=== PATIENT | female | born 2000 | race African-American/Black ===

== ENCOUNTER 2020-11-07 09:40 | Inpatient (IN) ==
[2020-11-07] MEDS ORDERED: ceFAZolin 3,000 MG in SYRINGE 1 EACH IV ONE (10:42)
[2020-11-07] MEDS ORDERED: FAMOTIDINE 20 MG/2 ML VIAL IV ONE (10:42)
[2020-11-07] MEDS ORDERED: CITRIC ACID/SODIUM CITRATE 30 ML UDCUP PO ONE (10:42)
[2020-11-07] MEDS ORDERED: OXYTOCIN 10 UNIT/ML VIAL IM ONE (10:44)
[2020-11-07] MEDS ORDERED: OXYTOCIN/LR 30 UNIT/1,000 ML BAG IV ONE (10:44)
[2020-11-07 11:09] LABS: Basophils % 0.4 % (0.0-0.8); Eosinophils # 0.2 10*3/uL (0.0-0.87); Eosinophils % 2.8 % (0.00-10.9); Hematocrit 38.9 VOL% (35.7-47.0); Hemoglobin 13.3 GM/DL (12.0-16.0); Immature Granulocytes % 0.1 %; Immature Granulocytes Absolute 0.01 #; Lymphocytes # 2.3 10*3/uL (1.4-4.0); Lymphocytes % 33.7 % (21.3-54.2); Mean Corpuscular HGB Conc 34.2 GM/DL (32-36); Mean Corpuscular Volume 86.1 FL (87-102); Mean Platelet Volume 9.2 FL (9.6-12.0); Monocytes % 6.1 % (1.7-12.7); Neutrophils % 56.9 % (38.7-73.9); Platelet Count 308 T/CUMM (130-400); Red Blood Count 4.52 MC/CUMM (3.8-5.5); Red Cell Distribution Width 14.4 % (9.3-17.3); White Blood Count 6.8 T/CUMM (4-12)
[2020-11-07] MEDS: LACTATED RINGERS 1,000 ML IV SCH ×2 (11:30→12:48)
[2020-11-07 11:32] LABS: Albumin 2.8 G/DL (3.4-5.0); Bilirubin,Total 0.5 MG/DL (0.20-1.00); Calcium 8.7 MG/DL (8.5-10.1); Osmolality,Calculated 270.8 MOS/KG (273-304); Potassium 3.7 MMOL/L (3.5-5.1); Total Protein 7.3 G/DL (6.4-8.2)
[2020-11-07] MEDS ORDERED: miSOPROStoL 200 MCG TABLET ONE (13:46)
[2020-11-07] MEDS ORDERED: TRANEXAMIC ACID 1,000 MG/10 ML VIAL ONE (13:46)
[2020-11-07] MEDS ORDERED: METHYLERGONOVINE 0.2 MG/1 ML AMP ONE (13:47)
[2020-11-07] MEDS ORDERED: CARBOPROST TROMETHAMINE 250 MCG/ML AMP IM ONE (13:47)
[2020-11-07] MEDS ORDERED: SODIUM CHLORIDE 0.9% 0 ML IV ONE (13:49)
[2020-11-07] MEDS ORDERED: SODIUM CHLORIDE 0.9% 100 ML IV ONE ×2 (13:51→17:18)
[2020-11-07] MEDS ORDERED: BUPIVACAINE SPINAL 0.75% 2 ML AMP SPINAL ONE (16:22)
[2020-11-07] MEDS ORDERED: ONDANSETRON 4 MG/2 ML VIAL ONE (16:23)
[2020-11-07] MEDS ORDERED: ACETAMINOPHEN INJ 1,000 MG/100 ML VIAL IV ONE (17:09)
[2020-11-07] MEDS ORDERED: LACTATED RINGERS 1,000 ML IV ONE (17:09)
[2020-11-07] MEDS ORDERED: KETOROLAC 30 MG/1 ML VIAL ONE (17:18)
[2020-11-07 17:31] LABS: Cord Arterial Blood HCO3 21.6 MMOL/L
[2020-11-07 17:34] LABS: Cord Venous Blood HCO3 22.2 MMOL/L; Cord Venous Blood PCO2 42.2 MMHG; Cord Venous Blood PO2 27.7
[2020-11-07] MEDS ORDERED: RHO(D) IMMUNE GLOBULIN 300 MCG SYRINGE IM ONE (18:02)
[2020-11-07] MEDS ORDERED: ONDANSETRON 4 MG/2 ML VIAL IV PRN (18:02)
[2020-11-07] MEDS ORDERED: ACETAMINOPHEN 325 MG TABLET PO PRN (18:02)
[2020-11-07] MEDS ORDERED: OXYTOCIN/LR 20 UNIT/1,000 ML BAG IV ONE (18:02)
[2020-11-07] MEDS ORDERED: LACTATED RINGERS 1,000 ML IV SCH (18:30)
[2020-11-07] MEDS: IBUPROFEN 800 MG TABLET PO PRN (21:17)
[2020-11-07] MEDS: DOCUSATE SODIUM 100 MG CAPSULE PO SCH (23:19)
[2020-11-07] MEDS: ACETAMINOPHEN 500 MG TABLET PO SCH (23:29)
[2020-11-08 01:55] LABS: Basophils % 0.2 % (0.0-0.8); Eosinophils # 0.1 10*3/uL (0.0-0.87); Eosinophils % 0.8 % (0.00-10.9); Hematocrit 35.5 VOL% (35.7-47.0); Hemoglobin 11.8 GM/DL (12.0-16.0); Immature Granulocytes % 0.4 %; Immature Granulocytes Absolute 0.04 #; Lymphocytes # 2.5 10*3/uL (1.4-4.0); Lymphocytes % 26.9 % (21.3-54.2); Mean Corpuscular HGB Conc 33.2 GM/DL (32-36); Mean Corpuscular Volume 87.4 FL (87-102); Mean Platelet Volume 9.3 FL (9.6-12.0); Neutrophils % 66.7 % (38.7-73.9); Platelet Count 255 T/CUMM (130-400); Red Blood Count 4.06 MC/CUMM (3.8-5.5); Red Cell Distribution Width 14.4 % (9.3-17.3); White Blood Count 9.1 T/CUMM (4-12)
[2020-11-08] MEDS: KETOROLAC 30 MG/1 ML VIAL IV SCH ×2 (02:59→08:56)
[2020-11-08] MEDS ORDERED: diphenhydrAMINE CAP 25 MG CAPSULE PO PRN (03:00)
[2020-11-08] MEDS: ACETAMINOPHEN 500 MG TABLET PO SCH (05:12)
[2020-11-08] MEDS: MAGNESIUM HYDROXIDE SUSP 30 ML UDCUP PO PRN (08:54)
[2020-11-08] MEDS: DOCUSATE SODIUM 100 MG CAPSULE PO SCH ×2 (08:55→21:43)
[2020-11-08] MEDS: SIMETHICONE CHEW 80 MG TABLET PO PRN ×2 (08:55→21:44)
[2020-11-08] MEDS: MULTIVITAMIN (PRENATAL) TABLET PO SCH (08:55)
[2020-11-08] MEDS: METOCLOPRAMIDE 10 MG TABLET PO SCH ×2 (08:55→16:30)
[2020-11-08 09:02] LABS: Basophils % 0.1 % (0.0-0.8); Eosinophils # 0.1 10*3/uL (0.0-0.87); Eosinophils % 1.7 % (0.00-10.9); Hematocrit 38.7 VOL% (35.7-47.0); Hemoglobin 12.9 GM/DL (12.0-16.0); Immature Granulocytes % 0.3 %; Immature Granulocytes Absolute 0.02 #; Lymphocytes % 27.2 % (21.3-54.2); Mean Corpuscular HGB Conc 33.3 GM/DL (32-36); Mean Corpuscular Volume 86.8 FL (87-102); Mean Platelet Volume 8.8 FL (9.6-12.0); Monocytes % 4.4 % (1.7-12.7); Neutrophils % 66.3 % (38.7-73.9); Platelet Count 267 T/CUMM (130-400); Red Blood Count 4.46 MC/CUMM (3.8-5.5); Red Cell Distribution Width 14.3 % (9.3-17.3); White Blood Count 7.5 T/CUMM (4-12)
[2020-11-08] MEDS: IBUPROFEN 800 MG TABLET PO PRN (18:47)
[2020-11-09] MEDS: IBUPROFEN 800 MG TABLET PO PRN ×3 (00:34→21:08)
[2020-11-09] MEDS: MAGNESIUM HYDROXIDE SUSP 30 ML UDCUP PO PRN ×2 (08:30→21:08)
[2020-11-09] MEDS: MULTIVITAMIN (PRENATAL) TABLET PO SCH (08:30)
[2020-11-09] MEDS: SIMETHICONE CHEW 80 MG TABLET PO PRN (08:30)
[2020-11-09] MEDS: DOCUSATE SODIUM 100 MG CAPSULE PO SCH ×2 (08:31→21:07)
[2020-11-10] MEDS: IBUPROFEN 800 MG TABLET PO PRN (07:19)
[2020-11-10] MEDS: MULTIVITAMIN (PRENATAL) TABLET PO SCH (07:20)
[2020-11-10] MEDS: DOCUSATE SODIUM 100 MG CAPSULE PO SCH (07:20)
[2020-11-10 07:52] VITALS: BP 151/82
== END 2020-11-10 12:00 | disposition home or self-care (01) | DRG 540 ==
LOC: N.LD 09:40 → N.OB 22:00
PROVIDERS: ADMIT Obstetrics & Gynecology; ATTEND Obstetrics & Gynecology
PROC: LDCSECT (ICD-10-PCS; 2020-11-07 16:26)